=== PATIENT | female | born 1970 | race African-American/Black ===

== ENCOUNTER 2019-12-31 03:44 | Inpatient (IN) | payer BC ==
[2019-12-31] MEDS ORDERED: niCARdipine 25 MG in Sodium Chloride 0.9% 250 ML 240 ML IVPB SCH (04:15)
[2019-12-31 04:34] LABS: #Basophils 0.1 thou/uL (0.0-0.2); #Eosinphils 0.1 thou/uL (0.0-0.7); #Lymphocytes 2.3 thou/uL (1.20-3.40); #Monocytes 0.8 thou/uL (0.11-0.59); %Basophils 1.3 % (0.0-1.0); %Eosinophils 0.8 % (0.0-10.0); %Lymphocytes 27.6 % (21.0-51.0); %Monocytes 9.1 % (0.0-10.0); %Neutrophils 61.1 % (42.0-75.0); Hemoglobin 12.7 g/dL (12.0-16.0); Mean Corpuscular HGB CONC 31.5 g/dL (32.0-36.0); Mean Corpuscular Hemoglobin 29.2 pg (27.0-31.0); Mean Corpuscular Volume 92.4 fL (78.0-98.0); Platelet Count 491 thou/uL (130-400); RBC Distribution Width 11.3 % (11.5-14.5); Red Blood Cell (RBC) Count 4.37 mill/uL (4.20-5.40); White Blood Cell (WBC) Count 8.3 thou/uL (4.8-10.8)
[2019-12-31 04:41] LABS: PTT 29.9 SEC (22.9-36.1); Prothrombin Time 13.4 SEC (12.0-14.7)
[2019-12-31] MEDS ORDERED: Acetaminophen 325 MG TAB PO PRN (04:51)
[2019-12-31] MEDS ORDERED: Acetaminophen 500 MG TAB ONE ×2 (04:55)
[2019-12-31 04:58] LABS: ALT (SGPT) 27 U/L (8-55); AST (SGOT) 17 U/L (5-34); Alkaline Phosphatase 102 U/L (40-110); Anion Gap 15 mmol/L (10-20); BUN (Urea Nitrogen) 18 mg/dL (7.0-18.7); Bilirubin, Total 0.4 mg/dL (0.2-1.2); CK (CPK) 179 U/L (29-168); Calc. Creatinine Clearance 0 mL/min (70-130); Calcium 9.1 mg/dL (7.8-10.44); Carbon Dioxide 22 mmol/L (22-29); Chloride 99 mmol/L (98-107); Estimated GFR-MDRD 46; Globulin 4.2 g/dL (2.4-3.5); Glucose 400 mg/dL (70-105); Potassium 3.9 mmol/L (3.5-5.1); Protein, Total 8.2 g/dL (6.0-8.3); Sodium 132 mmol/L (136-145)
--- NOTE | 2019-12-31 06:35 | CT ---
CT BRAIN WITHOUT CONTRAST: Date: 12/31/2019 INDICATION: History of headache and intraparenchymal hematoma. COMPARISON: None. FINDINGS: There is a 2.6 x 3.4 cm right parietal intraparenchymal hematoma with mild surrounding vasogenic saba a. There is no midline shift. No extra-axial hemorrhage is evident. No hydrocephalus is present. Mast oid air cells and paranasal sinuses are clear. IMPRESSION: Right parietal intraparenchymal hematoma. Recommend follow-up MRI of the brain with and without contr ast to exclude the possibility of any underlying lesion. This may reflect a hypertensive intraparench ymal hemorrhage. Findings called to Dr. Pollard at 0500 hours on 12/31/2019. CODE CR. POS: BH
[2019-12-31] MEDS: Sodium Chloride 0.9% 1,000 ML IV SCH ×2 (06:50→19:33)
--- NOTE | 2019-12-31 10:07 | HP ---
CHIEF COMPLAINT: Right-sided headache. HISTORY OF PRESENT ILLNESS: Ms. Abreu is a pleasant 49-year-old female who presented to the emergency department as a transfer from [facility] in [place] with complaints of headache and CT brain finding of right parieto-occipital intraparenchymal hemorrhage. The patient reports that she has been experiencing severe right temporal throbbing headaches over the past four days. She said that when the headache began, it awoke her from sleep with unbearable pain. She has been taking Excedrin Migraine frequently over the last several days, but has not experienced the relief that she normally gets with this medication. She reports prior headaches in the past, but states that this headache is the most severe she has ever experienced in her lifetime. She states that she has scheduled an appointment with her primary care provider yesterday for evaluation. Her PCP referred her an eye exam given her history of retinal detachment that required surgery given that she was also experiencing onset of blurred vision. She saw an ingredient mixer/police dispatcher and had negative findings for any optic abnormalities. She later presented to Urgent Care for further evaluation. Upon presentation to the transfer hospital, her blood pressure was 200/112. Also, she was hyperglycemic at 474. She states that she has a history of hypertension and diabetes mellitus. HOME MEDICATIONS: Include 1. Losartan. 2. Norvasc. 3. Lantus. 4. Lasix. No tobacco use. Her highest recorded blood pressure at home was systolic into the 180s. She reports associated symptoms including blurred vision, nausea and vomiting. CT of the brain completed at the transfer facility was sent on a CD. Unfortunately, the imaging was not properly loaded on the CD and was unable to be reviewed upon patient's arrival to the [facility] emergency room. At this time, a repeat CT of the brain was ordered, given it had been several hours since the first scan was completed. Radiology impression from the initial CT completed at the transfer facility read small acute intraparenchymal hemorrhage in the right parieto-occipital region with trace leftward midline shift of 0.2 cm. No evidence of intraventricular extension. The hemorrhage measurements initially reported as 2.2 x 1.7 x 2.0 cm. Mild associated vasogenic edema. A repeat CT of the brain revealed consistent findings of right parieto-occipital hemorrhage with minimal midline shift, with slightly enlarged measurements of 3.4 x 2.6 cm. The patient states that typically she takes 81 mg aspirin for cardiac health, but states that she has not taken this medication in over one month. No other blood thinners. PAST MEDICAL HISTORY: Hypertension, diabetes mellitus, hyperlipidemia. PAST SURGICAL HISTORY: Total hysterectomy, knee arthroscopies, bilateral retinal detachment surgery. SOCIAL HISTORY: Never a smoker, no tobacco use. MEDICATIONS: See list, no current blood thinners, stopped 81 mg aspirin over a month ago. PHYSICAL EXAMINATION: VITAL SIGNS: Vital signs reviewed in chart, systolic in the 170s during my evaluation in the emergency department this morning. NEURO: Patient is awake, alert, and appropriate. A and O x3. The patient is correctly able to identify a pen and stated she used. She provides the correct definition of an island. Pupils are equal, round, and reactive to light. Extraocular movements are intact. No tongue fasciculations. Cranial nerves 2 through 12 are intact. Normal speech. No pronator drift. The patient has excellent 5/5 strength throughout her upper and lower extremities bilaterally. Sensation to light touch is intact and equal throughout all extremities. Gait not assessed. IMPRESSION/DIAGNOSES: 1. Acute right parietal-occipital lobe intraparenchymal hemorrhage. 2. Uncontrolled hypertension. 3. Diabetes mellitus, uncontrolled hyperglycemia. PLAN: At this time, I have discussed this case and reviewed imaging with Dr. Hall. As noted above, CT of the brain without contrast was ordered upon patient's arrival to the emergency department, given that CT from transfer facility was not loaded with imaging and sufficient time had passed to warrant a repeat CT to assess for progression of bleed. The patient's CT of the brain without contrast reveals a right parieto-occipital lobe intraparenchymal hemorrhage. The patient is not currently on blood thinners. The patient presented with significant uncontrolled hypertension. She was started on Cardene drip. I have also placed p.r.n. orders for hydralazine. Blood pressure parameters include systolic blood pressure less than 150 and diastolic blood pressure less than 100. We will appreciate our medical colleagues assisting with blood pressure and blood sugar control. The patient hyperglycemic with blood sugars into the 400s. The patient was admitted to the Critical Care Unit for close neurologic monitoring with q.1 hour neuro checks. Head of bed 30 degrees. No neurosurgical intervention at this time. We will monitor patient neurologically, but our hope is that she will have favorable outcome. She is neurologically intact on examination. Goal for today will be to work on blood pressure and blood sugar levels. She may mobilize and ambulate with assistance. We will determine if additional imaging needs to be completed. Please call for any neurologic changes or other concerns. This was a 50-minute initial visit in which greater than 50% time was spent in review of records, imaging, evaluation, examination of the patient, and formulation of plan. The remaining time was spent in counseling and coordination of care. Job ID: [id number]
[2019-12-31] MEDS ORDERED: Dextrose 50% Abboject 50 ML SYRINGE SLOW IVP PRN (10:24)
[2019-12-31] MEDS ORDERED: Dextrose 5% in Water 1,000 ML IV PRN (10:24)
[2019-12-31] MEDS ORDERED: hydrALAZINE 25 MG TAB PO SCH (10:30)
[2019-12-31] MEDS ORDERED: hydrALAZINE 25 MG TAB ONE ×2 (12:19→12:49)
--- NOTE | 2019-12-31 12:28 | PRG ---
DATE OF SERVICE: 12/31/2019 This is a 30-minute initial visit note, in which 30 minutes were spent reviewing of the imaging, record, evaluation, examination of patient, formulation of plan. Greater than 50% time was spent in counseling on Lucia Rust. I reviewed the notes of my colleague, Claudia Barragan PA-C, and agree with its content. Ms. Rust is a 49-year-old woman with significant hypertension and presented with headache and left visual field deficit and was found to have a right occipital lobe hemorrhage that abutted the corpus callosum. It is also apparent cystic regions and it is difficult for me to tell if this is edema or some sort of lesional hemorrhage or perhaps just a hypertensive hemorrhage with hyperdense or hyperacute bleeding. Nevertheless, we are arranging for an MRI of the brain without and with contrast to rule out obvious neoplastic evidence and a CT angiogram of the brain should be done tomorrow to evaluate for vascular abnormality. Should she be found to have a neoplastic lesion, I would be concerned about metastasis and would recommend a CT scan of the chest, abdomen, and pelvis rather than a CT angiogram of the brain; however, we will see what the MRI of the brain shows. Neurologically, she is completely intact. Her blood pressure is under better control with nicardipine. She remains in the ER right now, because she cannot be transferred to the stroke floor with being on a nicardipine infusion. We will continue follow up on the imaging studies and we will arrange for followup in our clinic as deemed appropriate based on her clinical course and radiologic findings. DIAGNOSIS: Right occipital lobe hemorrhage likely hypertensive potential lesional. Job ID: [id number]
[2019-12-31] MEDS ORDERED: Lorazepam 1 MG TAB ONE (12:48)
[2019-12-31] MEDS ORDERED: hydrALAZINE 20 MG/ML VIAL ONE ×4 (12:49→17:11)
[2019-12-31] MEDS: Lorazepam 0.5 MG TAB PO PRN (12:56)
[2019-12-31] MEDS ORDERED: HYDROcodone/Acetaminophen 5/325 mg Tablet ONE (13:25)
[2019-12-31] MEDS: HYDROcodone/Acetaminophen 5/325 mg Tablet PO PRN ×2 (13:26)
[2019-12-31] MEDS ORDERED: Amlodipine 5 MG TAB PO SCH (13:45)
[2019-12-31] MEDS ORDERED: Amlodipine 5 MG TAB ONE (13:49)
[2019-12-31] MEDS: hydrALAZINE 20 MG/ML VIAL SLOW IVP PRN ×4 (13:53→22:49)
[2019-12-31] MEDS ORDERED: Magnevist 469MG/ML 20 ML VIAL ONE (14:49)
--- NOTE | 2019-12-31 16:45 | MRI ---
MRI of thebrain: 12/31/2019 COMPARISON:Head CT 12/31/2019 HISTORY:Evaluate intra-axial hemorrhage in the right parieto-occipital hemorrhage TECHNIQUE: Multiplanar multisequence MR imaging of thebrain with and without contrast Findings:The diffusion weighted imaging demonstrates no evidence for acute infarction. The axial gradient echo imaging demonstrates small scattered foci of blooming artifact within bilater al cerebellar hemispheres, within the yara, within the periventricular white matter adjacent to the frontal horn of the left lateral ventricle, and within the thalami bilaterally, suggesting numerous a reas of prior hemorrhage. There is an acute intra-axial hemorrhage within the medial aspect of the right occipital lobe posteri or and medial to the atrium of the right lateral ventricle which measures approximately 1.8 x 1.4 cm. There is a punctate focus of enhancement along the anterior margin of the hematoma of uncertain e tiology/significance, measuring approximately 2-3 mm. No convincing evidence for underlying tumor or arteriovenous malformation is seen at this time. MRI of the brain with and without contrast follow ing resolution of the acute hematoma is advised to better evaluate for a small underlying lesion which has bled and 2 reevaluate the punctate nonspecific focus of enhancement along the anterior sahil in of the hematoma. The imaged paranasal sinuses/mastoid air cells are well aerated aside from partial opacification of i nferior mastoid air cells bilaterally. Arterial flow voids at the axial level of the skull base appear grossly unremarkable on the T2-weight ed imaging. IMPRESSION: Nonspecific intra-axial hemorrhage in the right parieto-occipital region. There is a punc pineda focus of enhancement along the anterior margin of the lesion of uncertain significance. Of note, the gradient echo imaging demonstrates numerous foci of blooming artifact bilaterally suggestin g areas of prior hemorrhage. The acute hemorrhage within the right parieto-occipital region could be on the basis of an underlying vascular abnormality, such as vasculitis. In order to exclude an und erlying vascular lesion which has bled or an underlying tumor which has bled, a short-term follow-up MRI of the brain in 3-4 weeks is advised with and without contrast.
[2019-12-31] MEDS ORDERED: Acetaminophen/Codeine 30-300mg Tablet ONE (17:10)
[2019-12-31] MEDS: Acetaminophen/Codeine 30-300mg Tablet PO PRN (17:13)
[2019-12-31] MEDS: HumaLOG 300 UNITS/3 ML VIAL SC PRN (17:37)
[2019-12-31] MEDS ORDERED: HumaLOG 300 UNITS/3 ML VIAL ONE (17:38)
[2019-12-31] MEDS ORDERED: Carvedilol 6.25 MG TAB PO SCH (18:30)
[2019-12-31 18:39] VITALS: BMI 39.9
--- NOTE | 2019-12-31 18:58 | CON ---
DATE OF CONSULTATION: 12/31/2019 DATE OF REASON FOR CONSULTATION: Hypertension, diabetes, medical management. BRIEF HISTORY OF PRESENT ILLNESS: This is a 49-year-old female with a past medical history of hypertension, diabetes, who had presented to the emergency room with severe headache. The patient states that her headache had started 4 days prior. She states that it progressively got worse. It was mostly on the right side of her head and was associated with pain in the back of both of her eyes. She states that she tried using ice and heating packs with no relief. Her headache was constant , not relieved with any pain medication. It was worse with bending over and worse with coughing and was also associated with nausea and light sensitivity. The patient states that this was the worst headache of her life. She went to an urgent care center and her blood pressure was over 200 systolic. She was prescribed Excedrin without any relief. She then went to see her PCP yesterday who referred her to an junior bookkeeper given her history of retinal detachment because she was also experiencing some blurred vision. Her junior bookkeeper stated that there was no evidence of an acute hemorrhage, but she did have some cataracts in her eyes. The patient also states that her blood sugar was 474 and this was another reason that she presented to the emergency room. Upon presentation to the emergency room, the patient had a blood pressure of 153 /96 with a heart rate of 105. She was afebrile with a normal respiratory rate and normal O2 saturation. Labs were significant for hyponatremia with a sodium of 132 and a creatinine of 1.45. Glucose was 400. CK level was 179. CT scan of her brain showed right parietal intraparenchymal hematoma. There was also some mild surrounding vasogenic edema. The patient was initially admitted under the Neurosurgical Service. Hospitalist was consulted for blood pressure and blood sugar management. With regards to hypertension, the patient states that she was taking losartan and Lasix at home on a daily basis and did not miss any doses of her medication. The patient states that she normally had a blood pressure in the 160s; however, over the past 2 or 3 weeks, she noticed that her blood pressure was increasing to 200. She denied any excessive salt intake or eating excessive amounts of junk food. The patient also reports a history of diabetes and states that she takes 40 units of Lantus b.i.d. She states that she has been working on weight loss and has been a bit more strict about her diet in attempt to control her blood sugars due to neuropathy that she is experiencing in her feet. PAST MEDICAL HISTORY: Hypertension, diabetes, retinal detachment in the past requiring surgery. PAST SURGICAL HISTORY: Knee arthroscopies, bilateral retinal detachment surgery , total hysterectomy. FAMILY HISTORY: Stroke, hypertension, CAD, diabetes. SOCIAL HISTORY: The patient states that she has never smoked. She does not drink alcohol or use tobacco. HOME MEDICATIONS: Losartan, Lasix, Lantus 40 mg twice daily. ALLERGIES: NO KNOWN DRUG ALLERGIES. PHYSICAL EXAMINATION: VITAL SIGNS: Blood pressure at time of my evaluation was 140 systolic, heart rate was 110, respiratory rate 12, O2 saturation 96% on room air. NEURO: The patient is alert, awake, oriented x3. She is able to move all 4 extremities with full range of motion. She has 5/5 strength in her upper and lower extremities. She has intact sensation all 4 extremities. Her pupils are equal and reactive to light. HEENT: The patient noted to have impaired red reflex in both eyes. There is no evidence of papilledema in either eye. Left eye blood vessels on fundoscopy are more discrete than on the right eye. CVS: Regular rate and rhythm with no murmurs, rubs, or gallops. LUNGS: Clear to auscultation bilaterally. ABDOMEN: Positive bowel sounds, soft, nontender, nondistended. EXTREMITIES: No edema. PERTINENT LABORATORY DATA: CBC on 12/31: shows white count 8.3, hemoglobin 12.7, hematocrit 40.4, platelet count of 491. BMP on 12/31:sodium 132, potassium 3.9, chloride 99, bicarb 22, BUN 18, creatinine 1.45, calcium 9.1, glucose 400. LFTs; AST 117, ALT 27, alkaline phosphatase 102. CK: 179. Troponin I: less than 0.010. INR :1.0. IMAGING: CT brain: right parietal intraparenchymal hematoma 2.6 x 3.4 cm with mild surrounding vasogenic edema. MRI brain:, nonspecific intra-axial hemorrhage in the right parieto-occipital region. There is punctate focus of enhancement along the anterior margin of the lesion of uncertain significance. There are numerous foci of blooming artifact bilaterally suggesting areas of prior hemorrhage. The acute hemorrhage could be an underlying vascular abnormality such as vasculitis. The patient needs a followup MRI of the brain in 3 to 4 weeks with and without contrast. ASSESSMENT AND PLAN: This is a 49-year-old female with a past medical history of hypertension, diabetes, retinal detachment in the past status post surgery, who presented to the emergency department with acute onset headache while sleeping, found to have right parieto-occipital intraparenchymal hemorrhage. Right parieto-occipital intraparenchymal hemorrhage: Hypertensive Emergency - Neurosurgery was consulted and recommended conservative management. The patient was on a Cardene drip in the emergency room. She was transitioned off and given amlodipine 5 mg, hydralazine 25 mg with improvement in her blood pressures to the 140s. Given that the patient is significantly tachycardic, I will also add Coreg 6.25 mg b.i.d. I will also add p.r.n. IV hydralazine to keep blood pressures less than 150/100. - continue amlodipine 5 mg po daily, hydralazine 25 mg po tid - We will do neuro checks q.2 hours. The patient will need followup MRI imaging in 3 to 4 weeks with and without contrast. Type 2 diabetes: We will resume her Lantus 40 units q.a.m. and at bedtime. We will check fingersticks a.c. and at bedtime and do an insulin sliding scale. History of retinal detachment: The patient was evaluated by her junior bookkeeper and felt to have no acute vision abnormalities. Code status: The patient is a full code. Deep vein thrombosis prophylaxis, we will hold. Job ID: [id number] MTDD
[2019-12-31] MEDS: hydrALAZINE 25 MG TAB PO SCH (19:31)
[2019-12-31] MEDS ORDERED: Insulin Glargine 40 UNITS in Pre-Filled Syringe 1 EACH SC SCH (21:00)
[2020-01-01] MEDS: HYDROcodone/Acetaminophen 5/325 mg Tablet PO PRN ×3 (00:57→22:20)
[2020-01-01] MEDS: hydrALAZINE 20 MG/ML VIAL SLOW IVP PRN (01:02)
[2020-01-01] MEDS: Labetalol HCl 100 MG/20 ML VIAL SLOW IVP PRN ×2 (02:13→06:26)
[2020-01-01] MEDS: Lorazepam 0.5 MG TAB PO PRN (02:17)
[2020-01-01] MEDS: predniSONE 50 MG TAB PO SCH ×3 (06:27→17:30)
[2020-01-01] MEDS: HumaLOG 300 UNITS/3 ML VIAL SC PRN ×3 (06:28→17:30)
[2020-01-01] MEDS: Ondansetron PF 4 MG/2 ML Vial IVP PRN ×2 (06:31→12:51)
[2020-01-01] MEDS ORDERED: Carvedilol 6.25 MG TAB PO SCH (08:00)
[2020-01-01] MEDS: hydrALAZINE 25 MG TAB PO SCH ×4 (08:54→20:54)
[2020-01-01] MEDS: Sodium Chloride 0.9% 1,000 ML IV SCH (08:54)
[2020-01-01] MEDS: Furosemide 40 MG TAB PO SCH (08:54)
[2020-01-01] MEDS: Insulin Glargine 40 UNITS in Pre-Filled Syringe 1 EACH SC SCH (08:57)
[2020-01-01] MEDS ORDERED: Amlodipine 5 MG TAB PO SCH ×2 (09:00→16:00)
--- NOTE | 2020-01-01 09:34 | PRG ---
DATE OF SERVICE: 01/01/2020 SUBJECTIVE: The patient is a 49-year-old female, recently evaluated by Dr. Hall's service for acute onset severe right-sided headaches and found to have acute intraparenchymal hemorrhage in the right occipital region. She has been evaluated yesterday afternoon with MRI imaging, which is notable for some enhancement along the anterior portion of the lesion. It is unclear the significance of this enhancement; however, it could represent underlying vascular abnormality or tumor. Overnight, the patient has continued to have significant right-sided headaches; however, she reports they do seem slightly improved. She is also still having some blurred vision, but this is also improving per the patient. OBJECTIVE: On exam this morning, the patient is awake, alert, and oriented x3. Her pupils are equal and reactive. Her extraocular movements are intact. She has free active range of motion of all extremities. She has no focal motor weakness on my exam. PLAN: We will go ahead and evaluate the patient further with CTA of the brain to rule out vascular abnormality and also CT of the chest, abdomen, and pelvis to rule out any metastatic lesions. Job ID: [id number] [facility]
[2020-01-01 10:10] LABS: Hemoglobin 11.8 g/dL (12.0-16.0); Mean Corpuscular HGB CONC 31.5 g/dL (32.0-36.0); Mean Corpuscular Hemoglobin 29.1 pg (27.0-31.0); Mean Corpuscular Volume 92.3 fL (78.0-98.0); Mean Platelet Volume 7.9 fL (7.4-10.4); Platelet Count 474 thou/uL (130-400); RBC Distribution Width 11.2 % (11.5-14.5); Red Blood Cell (RBC) Count 4.07 mill/uL (4.20-5.40); White Blood Cell (WBC) Count 8.9 thou/uL (4.8-10.8)
[2020-01-01 10:40] LABS: Anion Gap 10 mmol/L (10-20); BUN (Urea Nitrogen) 12 mg/dL (7.0-18.7); Calc. Creatinine Clearance 82 mL/min (70-130); Calcium 9.1 mg/dL (7.8-10.44); Carbon Dioxide 25 mmol/L (22-29); Chloride 101 mmol/L (98-107); Estimated GFR-MDRD 55; Glucose 242 mg/dL (70-105); Potassium 4.1 mmol/L (3.5-5.1); Sodium 132 mmol/L (136-145)
[2020-01-01] MEDS: Acetaminophen/Codeine 30-300mg Tablet PO PRN ×2 (11:15→20:53)
--- NOTE | 2020-01-01 15:51 | PDOC.HOSPP ---
- Subjective Encounter Date: 01/01/20 Encounter Time: 10:30 Subjective: The patient continues to have right sided headache which extends to behind her eye. She says the narcotic helped yesterday as well as one of the IV blood pressure medicine. She is still having difficulty with peripheral vision on her left side. No weakness - Objective Vital Signs & Weight: Vital Signs (12 hours) Temp Pulse Pulse Resp BP BP BP 01/01/20 15:41 98.1 F 105 H 14 183/85 H 01/01/20 14:47 100 185/77 H 01/01/20 14:35 100 186/90 H 01/01/20 11:41 99.2 F 98 15 128/93 H 01/01/20 10:32 100 153/73 H 01/01/20 08:56 97 146/77 H 01/01/20 08:54 97 146/77 H 01/01/20 08:53 01/01/20 07:31 99.0 F 97 16 146/77 H 01/01/20 06:26 105 H 189/89 H 01/01/20 04:00 99 F 110 H 16 153/74 H Pulse Ox 01/01/20 15:41 97 01/01/20 14:47 01/01/20 14:35 01/01/20 11:41 97 01/01/20 10:32 01/01/20 08:56 01/01/20 08:54 01/01/20 08:53 100 01/01/20 07:31 100 01/01/20 06:26 01/01/20 04:00 100 Weight Admit Weight 211 lb 9 oz Weight 211 lb 9 oz Result Diagrams: 01/01/20 09:59 01/01/20 09:59 Additional Labs: Accuchecks 01/01/20 01/01/20 12/31/19 10:23 06:10 20:31 POC Glucose 231 H 328 H 298 H 12/31/19 17:39 POC Glucose 440 H Hospitalist ROS - Review of Systems Constitutional: denies: fever, chills Respiratory: denies: cough, dry - Medication Medications: Active Medications Generic Name Dose Route Start Last Admin Trade Name Freq PRN Reason Stop Dose Admin Acetaminophen/Codeine Phosphate 1 tab 12/31/19 04:51 01/01/20 11:15 Tylenol #3 PO 1 tab Q6H PRN Administration Mild-Moderate Pain (1-5) Hydrocodone Bitart/Acetaminophen 1 tab 12/31/19 04:52 12/31/19 13:26 [place] 5/325 PO 1 tab Q6HR PRN Administration Moderate Pain (4-6) Hydrocodone Bitart/Acetaminophen 2 tab 12/31/19 04:52 01/01/20 09:02 [place] 5/325 PO 2 tab Q6HR PRN Administration Severe Pain (7-10) Furosemide 40 mg 01/01/20 09:00 01/01/20 08:54 Lasix PO 40 mg DAILY SLAVA Administration Hydralazine HCl 10 mg 12/31/19 04:49 01/01/20 01:02 Apresoline SLOW IVP 10 mg Q15MIN PRN Administration SBP >150 and DBP >100 Hydralazine HCl 50 mg 01/01/20 09:00 01/01/20 14:47 Apresoline PO 50 mg TID SLAVA Administration Insulin Glargine 40 units/ 0.4 mls @ 0 mls/hr 01/01/20 09:00 01/01/20 08:57 Miscellaneous Medication SC 0.4 mls QAM SLAVA Administration Insulin Human Lispro 0 units 12/31/19 10:24 01/01/20 10:34 Humalog SC 3 unit .MILD SLIDING SCALE PRN Administration Mild Correctional Scale Labetalol HCl 10 mg 01/01/20 02:02 01/01/20 06:26 Normodyne SLOW IVP 2 ml Q4H PRN Administration SBP Greater Than 180 Lorazepam 0.5 mg 12/31/19 11:28 01/01/20 02:17 Ativan PO 0.5 mg Q4H PRN Administration Anxiety Ondansetron HCl 4 mg 12/31/19 04:53 01/01/20 12:51 Zofran IVP 4 mg Q6H PRN Administration Nausea/Vomiting Prednisone 50 mg 01/01/20 06:00 01/01/20 08:54 Prednisone PO 01/01/20 20:00 50 mg 0600,1000,1800 SLAVA Administration Sodium Chloride 10 ml 01/01/20 09:37 01/01/20 12:51 Flush - Normal Saline IVF 10 ml PRN PRN Administration Saline Flush - Exam General Appearance: NAD, awake alert Eye: PERRL, anicteric sclera ENT: normocephalic atraumatic, no oropharyngeal lesions Neck: no JVD Heart: RRR, no murmur, no gallops, no rubs Respiratory: CTAB, no wheezes, no rales, no ronchi Gastrointestinal: soft, non-tender, non-distended, normal bowel sounds Extremities: no cyanosis, no clubbing, no edema Skin: normal turgor, no lesions, no rashes Neurological: cranial nerve grossly intact, normal sensation to touch, no focal deficits, no new deficit Neurological - other findings: impaired peripheral vision left visual field Musculoskeletal: normal tone, normal strength, no muscle wasting Psychiatric: normal affect, normal behavior, A&O x 3 Hosp A/P - Plan CT head: right parietal intraparenchymal hematoma 2.6 x 3.4 cm with vasogenic edema MRI brain: intra-axial hemorrhage right parieto-occipital region. Could be underlying abnormality such as vasculitis This is a 49 year old female with hypertension, diabetes, retinal detachment who presentd to the ER with right parieto-occipital hemorrhage #Right parieto-occipital intraparenchymal hemorrhage #Hypertensive emergency #Possible vasculitis? - CT head showed right parietal hematoma. MRI brain confirmed the same, mentioned possible vasculitis. Neurosurgery on board, planning CTA - started on prednisone by neurosurgery - will check ANCA/ESR/MASON to rule out vasculitis - will increase amlodipine to 10 mg daily - add imdur 30 mg - increase hydralazine to 50 mg tid - increase coreg to 12.5 mg bid - d/c IV fluids - add PT and OT #Type II Diabetes - will increase lantus to 44 units qhs - continue lantus 40 units am - can increase to moderate sliding scale if still uncontrolled #History of retinal detachment - clear per opthalmology - does have impaired peripheral vision on the left currently p Code status: full code
[2020-01-01] MEDS: Carvedilol 6.25 MG TAB PO SCH (16:30)
[2020-01-01] MEDS ORDERED: diphenhydrAMINE 50 MG CAP PO SCH (18:00)
--- NOTE | 2020-01-01 20:00 | CT ---
CT arteriogram head with IV contrast and 3-D imaging CT brain without and with IV contrast HISTORY: Intracranial hemorrhage. Mass. COMPARISON: 12/31/2019. FINDINGS: The lobular hyperdense blood collection at the medial aspect of the right occipital lobe is again demonstrated. It now measures up to 1.7 cm greatest oblique diameter on the axial images were the hemorrhage on the prior study was 2.3 cm. Surrounding vasogenic edema has decreased. No new areas of hemorrhage. Ventricles are unremarkable. No abnormal areas of brain enhancement on the contrast enhanced images. [place] is intact. N o focal aneurysm or embolus. No hypervascularity is associated with the right occipital parenchymal hematoma. IMPRESSION: Interval decrease in size of intraparenchymal hematoma right occipital lobe. No new abnor malities are demonstrated. No acute vascular abnormalities are demonstrated.
--- NOTE | 2020-01-01 20:09 | CT ---
CT chest with IV contrast CT abdomen and pelvis with IV contrast HISTORY: Brain mass. Evaluate for metastatic disease. FINDINGS: No parenchymal lung mass or mediastinal adenopathy. Reactive appearing lymph nodes are pres ent at each axilla and to the retroperitoneum. There is calcification throughout the arterial structures. 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 Solid organs of the abdomen are intact. Urinary bladder unremarkable. Gallbladder is surgically absent. Large amount of stool within the right side of the colon. IMPRESSION: No evidence of metastatic disease. Large amount of stool within the right colon. Clinical correlation regarding other signs and symptoms of constipation is required. Atherosclerosis.
[2020-01-01] MEDS ORDERED: Insulin Glargine 44 UNITS in Pre-Filled Syringe 1 EACH SC SCH (21:00)
[2020-01-02] MEDS: HumaLOG 300 UNITS/3 ML VIAL SC PRN ×2 (06:42→12:15)
[2020-01-02] MEDS: Insulin Glargine 40 UNITS in Pre-Filled Syringe 1 EACH SC SCH (08:10)
[2020-01-02] MEDS: hydrALAZINE 25 MG TAB PO SCH ×2 (08:12→14:59)
[2020-01-02] MEDS: Carvedilol 6.25 MG TAB PO SCH (08:13)
[2020-01-02] MEDS: Furosemide 40 MG TAB PO SCH (08:13)
[2020-01-02] MEDS ORDERED: Amlodipine 10 MG TAB PO SCH (09:00)
[2020-01-02] MEDS ORDERED: Amlodipine 5 MG TAB PO SCH (09:00)
[2020-01-02] MEDS: HYDROcodone/Acetaminophen 5/325 mg Tablet PO PRN (09:11)
[2020-01-02 11:39] VITALS: BP 116/60; TEMP 98.1
--- NOTE | 2020-01-02 12:36 | PRG ---
DATE OF SERVICE: 01/02/2020 SUBJECTIVE: The patient is seen and examined at the bedside. She is feeling better. OBJECTIVE: VITAL SIGNS: Blood pressure is 116/60, pulse is 98, temperature is 98.1, respiratory rate is 16, and O2 saturation is 95% on room air. HEENT: Head is normocephalic. Eyes are PERRLA. Sclerae are nonicteric. HEART: S1 and S2 normal. No S3. No S4. LUNGS: Clear. ABDOMEN: Soft, nontender, and nondistended. EXTREMITIES: No clubbing, cyanosis, or edema. NEUROLOGICAL: She is alert and oriented x4. There is no any sensory or focal deficits. She is alert and oriented x3. LABORATORY DATA: None today except for Accu-Cheks, which is 286. CT of the [place] angiogram with contrast showed hyperdense blood collection at the medial aspect of the right occipital lobe once again demonstrated surrounding vasogenic edema has decreased and no new areas of hemorrhage. Ventricles are unremarkable. [place] is intact. No focal aneurysms or embolus. No hypervascularity is associated with the right occipital parenchymal hematoma. IMPRESSION: 1. Right occipital intraparenchymal hemorrhage. 2. Hypertensive emergency. 3. Type 2 diabetes mellitus. 4. History of retinal detachment. PLAN: The patient can be discharged home from medical point of view. Her medications at the time of discharge are amlodipine 10 mg once a day, carvedilol 12.5 mg twice a day, hydralazine 50 mg 3 times a day, isosorbide mononitrate 30 mg once a day, hydrocodone bitartrate/APAP of 5/325 mg one tab q.6 hours p.r.n. as needed for the pain. She will continue her furosemide 40 mg once a day from her home medications prior to this hospitalization and she will stay on 30 units of insulin Lantus twice a day. She was on steroids and effects of steroids should wear off soon, so prior to this hospitalization, insulin dose should be adequate. Also, she is not supposed to take her ARB, she was taking prior to this hospitalization. She is going to do follow up with primary care physician in 1 week that is what Medical Team recommends and further discharge orders per Primary Team. Job ID: [id number]
[2020-01-02] MEDS ORDERED: FLU VACC QS2019-20(6MOS UP)/PF 60 MCG/0.5 ML SYRINGE IM ONE (15:15)
[2020-01-03 17:48] LABS: ANA Symphony (Qualitative) Negative (Negative); ANA Symphony (Quantitative) 0.3 Ratio (< 0.7 Negative); dsDNA IgG Antibody 3.1 IU/mL (<10 Negative)
--- NOTE | 2020-01-04 12:01 | DIS ---
DATE OF ADMISSION: 12/31/2019 DATE OF DISCHARGE: 01/02/2020 HOSPITAL COURSE: The patient is a 49-year-old female with a past medical history of diabetes and poorly controlled hypertension, who presented to the emergency department on 12/31/2019 for complaints of headache over the right temporal region and some left-sided vision changes. She was evaluated with a noncontrast head CT, which was notable for acute right occipital intracranial hemorrhage. She also had significantly elevated blood pressure on arrival with systolic greater than 200 and she was hypoglycemic at that time. She was admitted and monitored closely. She had significant improvement in her headache as well as no progression of her neurologic symptoms. She also reports her vision seems to be slightly improved. There was concern for possible underlying lesion or vascular abnormality; however, she was evaluated with a CTA of the brain as well as CT of the chest, abdomen, and pelvis, which were negative for any new acute finding. She was monitored closely on the stroke floor and worked with PT without any difficulty. She was tolerating regular diet and voiding appropriately. She was dismissed to home on 01/02/2020. I have discussed that she should remain off work for the next 4 weeks and not really doing any driving. I have provided her with a work note for this. I have given her script for [place] for p.r.n. pain. We will arrange for followup with Dr. Hall with repeat noncontrast head CT at that time. Job ID: [id number]
[2020-01-05 16:12] LABS: Cytoplasmic (C-ANCA) <1:20 titer (Neg:<1:20); Myeloperoxidase AutoAbs 9.4 U/mL (0.0-9.0); Perinuclear (P-ANCA) <1:20 titer (Neg:<1:20); Proteinase-3 AutoAbs 7.7 U/mL (0.0-3.5)
== END 2020-01-02 15:13 | disposition home or self-care (01) | DRG 64 ==
LOC: ERS 03:44 → EDSEX 03:44 → ERHOLD 04:07 → CCU 15:47 → 2SE 17:56
PROVIDERS: ADMIT Surgery; ATTEND Internal Medicine
DX: I61.8 Other nontraumatic intracerebral hemorrhage (principal); G93.6 Cerebral edema; I16.1 Hypertensive emergency; H33.20 Serous retinal detachment, unspecified eye; E87.1 Hypo-osmolality and hyponatremia; I10 Essential (primary) hypertension; R40.2362 Coma scale, best motor response, obeys commands, at arrival to emergency department; R40.2142 Coma scale, eyes open, spontaneous, at arrival to emergency department; R40.2252 Coma scale, best verbal response, oriented, at arrival to emergency department; R29.700 NIHSS score 0; E11.65 Type 2 diabetes mellitus with hyperglycemia; H53.8 Other visual disturbances; Z88.2 Allergy status to sulfonamides; Z91.041 Radiographic dye allergy status; E78.5 Hyperlipidemia, unspecified; Z90.710 Acquired absence of both cervix and uterus
CPT/HCPCS: 36415; 36416; 70450; 70496; 70553; 71260; 74177; 80048; 80053; 82550; 83520; 84443; 84484; 85025; 85027; 85610; 85652; 85730; 86038; 86225; 86256; 96365; 96366; A9579; J0360; J1815; J2405; J7050; J7512; Q0163

== ENCOUNTER 2020-02-08 11:49 | Outpatient (CLI) | payer BC ==
--- NOTE | 2020-02-08 12:24 | CT ---
CT HEAD WITHOUT IV CONTRAST COMPARISON: 12/31/2019 HISTORY: Follow-up nontraumatic intracranial hemorrhage TECHNIQUE: Axial CT imaging at 5 mm intervals from vertex through skull base without contrast FINDINGS: There is been expected evolutionary changes in the parenchymal hemorrhage in the right parietal-occip ital lobe. There is a low-attenuation area present in region of hemorrhage with adjacent slight hyperdense rim which measures 16 mm x 14 mm with prior measurement of 34 mm x 26 mm no new intraparen chymal or extra-axial hemorrhage is seen on this exam. There is no evidence of acute cortical infarction, mass effect, or midline shift. The ventricular system is normal in size, shape, and posit ion. Visualized paranasal sinuses are clear. Osseous structures appear intact. IMPRESSION: 1. No acute intracranial abnormality demonstrated. 2. Evolutionary changes in parenchymal hemorrhage right parietal occipital region.
== END 2020-02-08 11:50 | disposition home or self-care (01) ==
LOC: CT 11:49
PROVIDERS: ATTEND Surgery
DX: I62.9 Nontraumatic intracranial hemorrhage, unspecified (principal)
CPT/HCPCS: 70450

== ENCOUNTER 2020-03-17 13:15 | Outpatient (CLI) | payer BC ==
[~2020-03-17 13:15] MED LIST: Magnevist 469MG/ML 20 ML VIAL ONE
--- NOTE | 2020-03-17 14:57 | MRI ---
MRI BRAIN WITH AND WITHOUT CONTRAST: DATE: 03/17/2020 HISTORY: 49-year-old female with cerebral hemorrhage and headache. COMPARISON: 12/31/2019 MRI TECHNIQUE: Multiplanar, multisequence MRI of the brain performed pre- and post-IV injection of gadolinium based contrast agent. FINDINGS: There is a new approximately 1.5 x 1.2 cm focal intra-axial T2-hyperintense, FLAIR hyperintense, and T1 hypointense with strongly restricted diffusion, minimal heterogeneous enhancement, no hemorrhage, in the right frontal syed radiata. The previously demonstrated right parieto-occipital intra-axial hematoma has evolved and has become s maller, currently measuring approximately 1.2 x 0.8 x 2 cm. The previously demonstrated surrounding halo of vasogenic edema has almost completely resolved now. The majority of this lesion now has hemos iderin. There is a minimal amount of residual extracellular methemoglobin. On the postcontrast images, there is a cluster of blood vessels within this involuting hematoma that are more numerous in this particular region than in the corresponding location on the contralateral left side. There is 1 focus of enhancement which is platelike, measuring approximately 0.7 x 0.3 cm l ocated along the posterior superior medial side of this lesion. This may represent an abnormally dilated blood vessel, small neoplasm, and less likely granulation tissue. It was not present on the p revious MRI. As previously stated, the gradient echo images demonstrate multiple other hemosiderin stains in other regions of the brain. Many are punctate. Others are larger and more patchy. The patchy 1's include left sides of the genu and splenium of the corpus callosum, and right side of the yara. The punctate 1's include bilateral cerebellar hemispheres, right mesial temporal lobe, and bilateral thalami. The ventricles are normal in size and configuration. Chronic periventricular white matter T2 hyperint ensities are again noted, presumably representing chronic ischemic white matter changes. No mass effect, midline shift, new hemorrhage, or extra-axial fluid collection. IMPRESSION: 1. New, acute, 1.5 cm right frontal deep white matter infarction. 2. Interval involution of the right parieto-occipital late subacute, early chronic intra-axial hemato ma. 3. Evidence for multiple small previous hemorrhages in the brain, suggestive of amyloid angiopathy. 4. Based on #3, the right parieto-occipital hematoma may also be due to amyloid angiopathy. However, based on the enhancement pattern, it is also possible that this could represent a small arteriovenous malformation or small neoplasm. Therefore, continued serial follow-up MRIs with and wit hout contrast is recommended, the next one in another 3 months.
== END 2020-03-17 13:16 | disposition home or self-care (01) ==
LOC: TBSIIMAG 13:15
PROVIDERS: ATTEND Surgery
DX: I61.9 Nontraumatic intracerebral hemorrhage, unspecified (principal); R51 Headache; I63.9 Cerebral infarction, unspecified
CPT/HCPCS: 70553; A9579

== ENCOUNTER 2020-08-09 13:28 | Outpatient (CLI) | payer BC ==
--- NOTE | 2020-08-09 15:10 | MRI ---
MRI of thebrain: 08/09/2020 COMPARISON:03/17/2020 HISTORY:Prior imaging demonstrated right parieto-occipital hemorrhage TECHNIQUE: Multiplanar multisequence MR imaging of thebrain with and without contrast Findings:The diffusion weighted imaging demonstrates no evidence for acute infarction. The gradient echo imaging demonstrates numerous punctate foci of blooming artifact within the yara an d bilateral cerebellar hemispheres as well as the basal ganglia and thalami. In addition, there is a right parietal/occipital focus of blooming artifact measuring 1.2 cm. These areas of blooming artif act are consistent with remote areas of hemorrhage. The most conspicuous focus of hemorrhage is the right parieto-occipital abnormality which measured up to 2.6 cm on the 12/31/2019 exam. There are no n ew areas of intracranial hemorrhage apparent. No midline shift or mass effect is present in no ventricular enlargement is seen. Scattered areas of periventricular and subcortical white matter T2 and FLAIR hyperintensity again noted, evidence of grossly unchanged small vessel disease. The axial T2-weighted imaging demonstrates grossly unremarkable arterial flow voids at the axial leve l of the skull base. The postcontrast imaging demonstrates curvilinear enhancement along the posterior margin of the previ ously seen right parieto-occipital hemorrhage. Technique limits detailed assessment of this lesion but the findings are suspicious for a small arteriovenous malformation measuring in the 8 mm range. IMPRESSION:Stable chronic hemorrhage in the right parieto-occipital region. Postcontrast imaging in t his region demonstrates curvilinear enhancement suspicious for a small arteriovenous malformation. Recommend conventional angiography for full assessment. Results sent to Dr. Hall via [employer] 3:00 PM 08/09/2020
== END 2020-08-09 13:29 | disposition home or self-care (01) ==
LOC: BICMRI 13:28
PROVIDERS: ATTEND Surgery
DX: I61.1 Nontraumatic intracerebral hemorrhage in hemisphere, cortical (principal)
CPT/HCPCS: 70553; 82565; A9579

== ENCOUNTER 2020-09-23 06:23 | Outpatient (CLI) | payer BC ==
[2020-09-23 13:59] LABS: Anion Gap 19 mmol/L (10-20); BUN (Urea Nitrogen) 14 mg/dL (9.8-20.1); Calc. Creatinine Clearance 0 mL/min (70-130); Calcium 9.5 mg/dL (7.8-10.44); Carbon Dioxide 25 mmol/L (22-29); Chloride 101 mmol/L (98-107); Estimated GFR-MDRD 43; Glucose 172 mg/dL (70-105); Potassium 4.3 mmol/L (3.5-5.1); Sodium 141 mmol/L (136-145)
[2020-09-24 20:27] LABS: SARS-CoV-2 MS2 Positive; SARS-CoV-2 N Gene Negative; SARS-CoV-2 S Gene Negative; SARS-CoV-2 by NAA Not Detected (NotDetected); SARS-CoV-2 orf1ab Negative
--- NOTE | 2020-09-28 06:54 | EKG ---
Test Reason : Blood Pressure : / mmHG Vent. Rate : 092 BPM Atrial Rate : 092 BPM P-R Int : 196 ms QRS Dur : 092 ms QT Int : 374 ms P-R-T Axes : 057 081 009 degrees QTc Int : 462 ms Normal sinus rhythm Normal ECG No previous ECGs available Confirmed by ARMINDA JUNIOR MD ([id number] on 09/28/2020 6:54:28 AM Referred By: LIDA Confirmed By:ARMINDA JUNIOR MD
== END 2020-09-23 06:24 | disposition home or self-care (01) ==
LOC: LABBT 06:23
PROVIDERS: ATTEND Neurological Surgery
DX: Z01.818 Encounter for other preprocedural examination (principal); Q28.2 Arteriovenous malformation of cerebral vessels; Z20.828 Contact with and (suspected) exposure to other viral communicable diseases
CPT/HCPCS: 80048; 87635; 93005; 93010; U0003

== ENCOUNTER 2020-09-28 10:23 | Day surgery (SDC) | payer BC ==
[2020-09-27 10:05] VITALS: BMI 41.5
[2020-09-28] MEDS ORDERED: Heparin 10,000 UNITS/ 10 ML VIAL ONE (10:46)
[2020-09-28] MEDS ORDERED: Iopamidol 370 76% 100 ML VIAL ONE (12:33)
--- NOTE | 2020-10-20 15:49 | CCLSPC ---
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 INDICATION: Pain. DIAGNOSIS: Intracerebral hemorrhage. PROCEDURE: Conventional angiography. DESCRIPTION OF PROCEDURE: The patient was brought into the angiogram suite, placed on table in supine position. Both groins were prepped and draped in the usual sterile fashion. A 5-Marshallese micropuncture set was used to gain access to the right common femoral artery. Using a Seldinger technique, a 5-Marshallese was placed over the micropuncture set to gain access to the right common femoral artery. A 5-Marshallese diagnostic catheter was passed over a [employer] guidewire and advanced into the right common carotid artery where an AP and lateral angiogram was performed. All catheters were then removed, and hemostasis was maintained with manual compression. The procedure came to an end without known complication. IMPRESSION: The patient underwent successful angiography of the right common carotid artery to include interpretation of the internal and external carotid artery. There is no evidence for arteriovenous malformation, aneurysm, or arteriovenous fistula. Job ID: [id number]
== END 2020-09-28 15:09 | disposition home or self-care (01) ==
LOC: CCL 10:23
PROVIDERS: ATTEND Neurological Surgery
PROC: 03HH3DZ Insertion of Intraluminal Device into Right Common Carotid Artery, Percutaneous Approach (ICD-10-PCS; principal; 2020-09-28)
DX: I61.9 Nontraumatic intracerebral hemorrhage, unspecified (principal); Z79.4 Long term (current) use of insulin; Z79.82 Long term (current) use of aspirin; Z79.899 Other long term (current) drug therapy; Z88.2 Allergy status to sulfonamides; Z91.041 Radiographic dye allergy status
CPT/HCPCS: 36217; 36224; J1644; Q9967

== ENCOUNTER 2021-04-19 16:30 | Inpatient (IN) | payer BC ==
[2021-04-19 16:49] LABS: #Basophils 0.1 thou/uL (0.0-0.2); #Eosinphils 0.1 thou/uL (0.0-0.7); #Monocytes 0.8 thou/uL (0.11-0.59); #Neutrophils 6.6 thou/uL (1.40-6.50); %Basophils 1.3 % (0.0-1.0); %Eosinophils 1.4 % (0.0-10.0); %Lymphocytes 27.9 % (21.0-51.0); %Monocytes 7.2 % (0.0-10.0); %Neutrophils 62.2 % (42.0-75.0); Hemoglobin 12.8 g/dL (12.0-16.0); Mean Corpuscular Hemoglobin 28.1 pg (27.0-31.0); Mean Corpuscular Volume 87.8 fL (78.0-98.0); Mean Platelet Volume 7.8 fL (7.4-10.4); Platelet Count 499 thou/uL (130-400); RBC Distribution Width 12.6 % (11.5-14.5); Red Blood Cell (RBC) Count 4.55 mill/uL (4.20-5.40); White Blood Cell (WBC) Count 10.7 thou/uL (4.8-10.8)
[2021-04-19 17:02] LABS: PTT 29.4 sec (22.9-36.1); Prothrombin Time 12.4 sec (12.0-14.7)
[2021-04-19 17:05] LABS: ALT (SGPT) 20 U/L (8-55); AST (SGOT) 21 U/L (5-34); Albumin 4.1 g/dL (3.5-5.0); Alkaline Phosphatase 118 U/L (40-110); Anion Gap 12 mmol/L (10-20); BUN (Urea Nitrogen) 20 mg/dL (9.8-20.1); Bilirubin, Total 0.3 mg/dL (0.2-1.2); Calc. Creatinine Clearance 0 mL/min (70-130); Calcium 9.8 mg/dL (7.8-10.44); Carbon Dioxide 26 mmol/L (22-29); Chloride 102 mmol/L (98-107); Globulin 4.5 g/dL (2.4-3.5); Glucose 96 mg/dL (70-105); Potassium 3.6 mmol/L (3.5-5.1); Protein, Total 8.6 g/dL (6.0-8.3); Sodium 136 mmol/L (136-145)
[2021-04-19 17:14] LABS: INR-International Normal Ratio 0.9
[2021-04-19] MEDS ORDERED: Aspirin Chewable 81 MG TAB ONE (17:28)
[2021-04-19] MEDS ORDERED: Sodium Chloride 0.9% 1,000 ML IV SCH (20:00)
[2021-04-19] MEDS ORDERED: Ondansetron PF 4 MG/2 ML Vial IVP PRN ×2 (20:00→20:28)
[2021-04-19] MEDS ORDERED: Acetaminophen 325 MG TAB PO PRN ×2 (20:00→20:28)
[2021-04-19] MEDS ORDERED: Ondansetron ODT 4 MG TAB SL PRN (20:00)
[2021-04-19] MEDS ORDERED: hydrALAZINE 20 MG/ML VIAL SLOW IVP PRN (20:23)
[2021-04-19] MEDS ORDERED: Labetalol HCl 100 MG/20 ML VIAL SLOW IVP PRN (20:23)
[2021-04-19 20:25] LABS: Troponin I Less than 0.010 ng/mL (< 0.028)
[2021-04-19] MEDS ORDERED: Dextrose 50% Abboject 50 ML SYRINGE SLOW IVP PRN (20:26)
[2021-04-19] MEDS ORDERED: Dextrose 5% in Water 1,000 ML IV PRN (20:26)
[2021-04-19] MEDS ORDERED: Ondansetron ODT 4 MG TAB PO PRN (20:28)
[2021-04-19] MEDS ORDERED: Senokot S 8.6-50 MG TAB PO PRN (20:28)
[2021-04-19] MEDS ORDERED: Acetaminophen 650 MG Suppository PR PRN (20:28)
[2021-04-19] MEDS: Famotidine/PF 20 mg/2ml Vial SLOW IVP SCH (20:48)
[2021-04-19] MEDS: Famotidine 20 MG TAB PO SCH (20:56)
[2021-04-19] MEDS: Atorvastatin Calcium 40 MG TAB PO SCH (20:56)
[2021-04-20 00:17] LABS: Troponin I Less than 0.010 ng/mL (< 0.028)
[2021-04-20] MEDS: D5 1/2 NS w/10 mEq KCl 1,000 ML/1,000 ML BAG IV SCH ×2 (00:56→22:40)
[2021-04-20 02:11] VITALS: BMI 51.5
[2021-04-20 05:28] LABS: #Basophils 0.1 thou/uL (0.0-0.2); #Eosinphils 0.2 thou/uL (0.0-0.7); #Lymphocytes 2.8 thou/uL (1.20-3.40); #Monocytes 0.7 thou/uL (0.11-0.59); #Neutrophils 5.1 thou/uL (1.40-6.50); %Basophils 0.8 % (0.0-1.0); %Eosinophils 1.7 % (0.0-10.0); %Lymphocytes 31.7 % (21.0-51.0); %Monocytes 7.6 % (0.0-10.0); %Neutrophils 58.2 % (42.0-75.0); Mean Corpuscular Hemoglobin 28.5 pg (27.0-31.0); Mean Corpuscular Volume 89.1 fL (78.0-98.0); Mean Platelet Volume 8.1 fL (7.4-10.4); Platelet Count 456 thou/uL (130-400); RBC Distribution Width 12.6 % (11.5-14.5); Red Blood Cell (RBC) Count 4.22 mill/uL (4.20-5.40); White Blood Cell (WBC) Count 8.7 thou/uL (4.8-10.8)
[2021-04-20 05:52] LABS: Anion Gap 11 mmol/L (10-20); BUN (Urea Nitrogen) 17 mg/dL (9.8-20.1); Calc. Creatinine Clearance 97 mL/min (70-130); Calcium 9.1 mg/dL (7.8-10.44); Carbon Dioxide 25 mmol/L (22-29); Cardiac Risk 4.5 (Less than 4.5); Chloride 107 mmol/L (98-107); Cholesterol 205 mg/dl (< 200 Desired); Glucose 107 mg/dL (70-105); HDL Cholesterol 46 mg/dL (>60 Neg Risk); LDL Cholesterol, Calculated 138 mg/dL; Potassium 3.5 mmol/L (3.5-5.1); Sodium 139 mmol/L (136-145); Triglycerides 106 mg/dL (Less than 150)
[2021-04-20 06:14] LABS: Thyroid Stimulating Hormone 0.5541 uIU/mL (0.35-4.94)
[2021-04-20] MEDS: Famotidine/PF 20 mg/2ml Vial SLOW IVP SCH ×2 (08:56→21:17)
[2021-04-20] MEDS ORDERED: Aspirin 325 mg Enteric Coated Tablet PO SCH (09:00)
[2021-04-20] MEDS: Famotidine 20 MG TAB PO SCH ×2 (09:01→21:16)
[2021-04-20] MEDS ORDERED: Lisinopril 5 MG TAB PO SCH (10:45)
[2021-04-20 13:41] LABS: Bilirubin Negative (Negative); Blood, Urine Trace (Negative); Glucose, Urine (Dipstick) Negative (Negative); Ketone, Urine Negative (Negative); Leukocyte Negative (Negative); Nitrite Negative (Negative); Protein, Urine (Dipstick) 100 mg/dL (Neg-Trace); Specific Gravity, Urine 1.025 (1.005-1.030); Urobilinogen 0.2 mg/dL (Less than 2)
[2021-04-20 13:45] LABS: Clarity Clear (Clear)
[2021-04-20 13:51] LABS: Bacteria/HPF None Seen HPF (None Seen); RBC/HPF 0-3 HPF (0-3); Squamous Epithelial 0-3 HPF (0-3); WBC/HPF 0-3 HPF (0-3)
[2021-04-20] MEDS ORDERED: Amlodipine 5 MG TAB PO SCH (15:45)
[2021-04-20] MEDS: HumaLOG 300 UNITS/3 ML VIAL SC PRN (17:31)
[2021-04-20] MEDS: Atorvastatin Calcium 40 MG TAB PO SCH (21:16)
[2021-04-20] MEDS: diphenhydrAMINE 25 MG CAP PO SCH (22:40)
[2021-04-21] MEDS: HumaLOG 300 UNITS/3 ML VIAL SC PRN ×4 (06:17→21:25)
[2021-04-21] MEDS ORDERED: Amlodipine 5 MG TAB PO SCH ×2 (09:00→10:00)
[2021-04-21] MEDS: Aspirin 81 mg Enteric Coated Tablet PO SCH (09:07)
[2021-04-21] MEDS: Famotidine 20 MG TAB PO SCH ×2 (09:10→21:17)
[2021-04-21] MEDS: Clopidogrel Bisulfate 75 MG TAB PO SCH (09:10)
[2021-04-21] MEDS: Lisinopril 5 MG TAB PO SCH (09:10)
[2021-04-21] MEDS: Famotidine/PF 20 mg/2ml Vial SLOW IVP SCH ×2 (09:11→21:17)
[2021-04-21] MEDS ORDERED: hydrALAZINE 25 MG TAB PO SCH (16:45)
[2021-04-21] MEDS: hydrALAZINE 25 MG TAB PO SCH (21:17)
[2021-04-21] MEDS: Atorvastatin Calcium 40 MG TAB PO SCH (21:17)
[2021-04-21] MEDS: diphenhydrAMINE 25 MG CAP PO SCH (21:17)
[2021-04-22 05:53] LABS: Anion Gap 10 mmol/L (10-20); BUN (Urea Nitrogen) 11 mg/dL (9.8-20.1); Calc. Creatinine Clearance 100 mL/min (70-130); Carbon Dioxide 26 mmol/L (22-29); Chloride 104 mmol/L (98-107); Glucose 200 mg/dL (70-105); Sodium 136 mmol/L (136-145)
[2021-04-22] MEDS: HumaLOG 300 UNITS/3 ML VIAL SC PRN ×3 (06:53→17:07)
[2021-04-22] MEDS: hydrALAZINE 25 MG TAB PO SCH ×3 (09:22→21:58)
[2021-04-22] MEDS: Lisinopril 5 MG TAB PO SCH (09:22)
[2021-04-22] MEDS: Clopidogrel Bisulfate 75 MG TAB PO SCH (09:22)
[2021-04-22] MEDS: Amlodipine 10 MG TAB PO SCH (09:22)
[2021-04-22] MEDS: Famotidine/PF 20 mg/2ml Vial SLOW IVP SCH ×2 (09:22→21:56)
[2021-04-22] MEDS: Aspirin 81 mg Enteric Coated Tablet PO SCH (09:22)
[2021-04-22] MEDS: Famotidine 20 MG TAB PO SCH ×2 (09:22→21:58)
[2021-04-22] MEDS ORDERED: ALPRAZolam 0.25 MG TAB PO SCH (15:00)
[2021-04-22] MEDS: diphenhydrAMINE 25 MG CAP PO SCH (21:58)
[2021-04-22] MEDS: Atorvastatin Calcium 40 MG TAB PO SCH (21:58)
[2021-04-22] MEDS: ALPRAZolam 0.25 MG TAB PO SCH (21:58)
[2021-04-23] MEDS: hydrALAZINE 25 MG TAB PO SCH ×3 (08:38→21:59)
[2021-04-23] MEDS: Aspirin 81 mg Enteric Coated Tablet PO SCH (08:38)
[2021-04-23] MEDS: ALPRAZolam 0.25 MG TAB PO SCH ×2 (08:39→21:59)
[2021-04-23] MEDS: Amlodipine 10 MG TAB PO SCH (08:39)
[2021-04-23] MEDS: Clopidogrel Bisulfate 75 MG TAB PO SCH (08:39)
[2021-04-23] MEDS: Famotidine 20 MG TAB PO SCH ×2 (08:39→21:59)
[2021-04-23] MEDS: Lisinopril 5 MG TAB PO SCH (08:40)
[2021-04-23] MEDS: Famotidine/PF 20 mg/2ml Vial SLOW IVP SCH ×2 (08:40→21:59)
[2021-04-23] MEDS: HumaLOG 300 UNITS/3 ML VIAL SC PRN ×2 (12:26→18:11)
[2021-04-23] MEDS: diphenhydrAMINE 25 MG CAP PO SCH (21:59)
[2021-04-23] MEDS: Atorvastatin Calcium 40 MG TAB PO SCH (21:59)
[2021-04-24] MEDS: HumaLOG 300 UNITS/3 ML VIAL SC PRN ×3 (05:31→17:13)
[2021-04-24] MEDS: Aspirin 81 mg Enteric Coated Tablet PO SCH (08:34)
[2021-04-24] MEDS: Clopidogrel Bisulfate 75 MG TAB PO SCH (08:35)
[2021-04-24] MEDS: hydrALAZINE 25 MG TAB PO SCH ×3 (08:35→20:57)
[2021-04-24] MEDS: ALPRAZolam 0.25 MG TAB PO SCH ×2 (08:35→20:56)
[2021-04-24] MEDS: Famotidine 20 MG TAB PO SCH ×2 (08:35→20:57)
[2021-04-24] MEDS: Lisinopril 5 MG TAB PO SCH (08:35)
[2021-04-24] MEDS: Amlodipine 10 MG TAB PO SCH (08:35)
[2021-04-24] MEDS: Famotidine/PF 20 mg/2ml Vial SLOW IVP SCH ×2 (08:36→20:58)
[2021-04-24] MEDS: Atorvastatin Calcium 40 MG TAB PO SCH (20:57)
[2021-04-24] MEDS: diphenhydrAMINE 25 MG CAP PO SCH (20:57)
[2021-04-24] MEDS: Lantus 1000 UNITS/10 ML VIAL SC SCH (20:58)
[2021-04-25] MEDS: Lisinopril 5 MG TAB PO SCH (08:36)
[2021-04-25] MEDS: ALPRAZolam 0.25 MG TAB PO SCH ×2 (08:36→20:43)
[2021-04-25] MEDS: Aspirin 81 mg Enteric Coated Tablet PO SCH (08:36)
[2021-04-25] MEDS: Amlodipine 10 MG TAB PO SCH (08:36)
[2021-04-25] MEDS: Famotidine 20 MG TAB PO SCH ×2 (08:37→20:43)
[2021-04-25] MEDS: Lantus 1000 UNITS/10 ML VIAL SC SCH ×2 (08:37→20:43)
[2021-04-25] MEDS: hydrALAZINE 25 MG TAB PO SCH ×3 (08:37→20:43)
[2021-04-25] MEDS: Clopidogrel Bisulfate 75 MG TAB PO SCH (08:37)
[2021-04-25] MEDS: Famotidine/PF 20 mg/2ml Vial SLOW IVP SCH ×2 (08:37→20:52)
[2021-04-25] MEDS: HumaLOG 300 UNITS/3 ML VIAL SC PRN (11:45)
[2021-04-25] MEDS: Atorvastatin Calcium 40 MG TAB PO SCH (20:42)
[2021-04-25] MEDS: diphenhydrAMINE 25 MG CAP PO SCH (20:43)
[2021-04-26] MEDS: ALPRAZolam 0.25 MG TAB PO SCH ×2 (09:25→20:13)
[2021-04-26] MEDS: Amlodipine 10 MG TAB PO SCH (09:26)
[2021-04-26] MEDS: hydrALAZINE 25 MG TAB PO SCH ×3 (09:26→20:13)
[2021-04-26] MEDS: Famotidine 20 MG TAB PO SCH ×2 (09:26→20:12)
[2021-04-26] MEDS: Lisinopril 5 MG TAB PO SCH (09:26)
[2021-04-26] MEDS: Aspirin 81 mg Enteric Coated Tablet PO SCH (09:26)
[2021-04-26] MEDS: Famotidine/PF 20 mg/2ml Vial SLOW IVP SCH ×2 (09:26→21:17)
[2021-04-26] MEDS: Clopidogrel Bisulfate 75 MG TAB PO SCH (09:26)
[2021-04-26] MEDS: Lantus 1000 UNITS/10 ML VIAL SC SCH ×2 (09:27→21:09)
[2021-04-26] MEDS: HumaLOG 300 UNITS/3 ML VIAL SC PRN ×2 (11:16→21:10)
[2021-04-26] MEDS: Atorvastatin Calcium 40 MG TAB PO SCH (20:12)
[2021-04-26] MEDS: diphenhydrAMINE 25 MG CAP PO SCH (20:12)
[2021-04-27] MEDS: HumaLOG 300 UNITS/3 ML VIAL SC PRN ×2 (06:14→10:55)
[2021-04-27] MEDS: Clopidogrel Bisulfate 75 MG TAB PO SCH (09:01)
[2021-04-27] MEDS: ALPRAZolam 0.25 MG TAB PO SCH (09:01)
[2021-04-27] MEDS: Famotidine 20 MG TAB PO SCH (09:01)
[2021-04-27] MEDS: Aspirin 81 mg Enteric Coated Tablet PO SCH (09:01)
[2021-04-27] MEDS: Lantus 1000 UNITS/10 ML VIAL SC SCH (09:03)
[2021-04-27] MEDS: Lisinopril 5 MG TAB PO SCH (09:03)
[2021-04-27] MEDS: hydrALAZINE 25 MG TAB PO SCH ×2 (09:03→15:58)
[2021-04-27] MEDS: Amlodipine 10 MG TAB PO SCH (09:03)
[2021-04-27] MEDS: Famotidine/PF 20 mg/2ml Vial SLOW IVP SCH (09:04)
[2021-04-27 11:32] LABS: SARS-CoV-2 PCR NAA for Saliva Not Detected (NotDetected)
[2021-04-27 15:56] VITALS: BP 141/68; TEMP 97.3
== END 2021-04-27 18:31 | DRG 65 ==
LOC: ERS 16:30 → OBSVTOIN 17:43 → INTOOBSV 17:43 → 2SE 17:43 → OBSVTOIN 04-21 09:28
PROVIDERS: ADMIT Internal Medicine; ATTEND Family Medicine
DX: I63.20 Cerebral infarction due to unspecified occlusion or stenosis of unspecified precerebral arteries (principal); Z68.43 Body mass index [BMI] 50.0-59.9, adult; N17.9 Acute kidney failure, unspecified; Z20.822 Contact with and (suspected) exposure to COVID-19; R29.810 Facial weakness; R13.10 Dysphagia, unspecified; R29.701 NIHSS score 1; R47.1 Dysarthria and anarthria; G93.89 Other specified disorders of brain; F41.9 Anxiety disorder, unspecified; I12.9 Hypertensive chronic kidney disease with stage 1 through stage 4 chronic kidney disease, or unspecified chronic kidney disease; N18.32 Chronic kidney disease, stage 3b; E11.22 Type 2 diabetes mellitus with diabetic chronic kidney disease; E66.9 Obesity, unspecified; Z91.041 Radiographic dye allergy status; Z79.4 Long term (current) use of insulin; Z88.2 Allergy status to sulfonamides; Z79.899 Other long term (current) drug therapy; Z79.82 Long term (current) use of aspirin; Z90.49 Acquired absence of other specified parts of digestive tract; Z90.710 Acquired absence of both cervix and uterus
CPT/HCPCS: 36415; 36416; 70450; 70551; 80048; 80053; 80061; 81001; 82607; 82746; 83036; 83735; 84443; 84484; 85025; 85610; 85730; 93005; 93306; 93880; 95712; 95819; 95957; 96374; 96376; G0378; J1815; J3480; Q0163; S0028; U0003; U0005